=== PATIENT | female | born 1950 | race Caucasian/White ===

== ENCOUNTER 2019-11-07 09:53 | Day surgery (SDC) | payer OTHER ==
[~2019-11-07] VITALS: Ht 157.5 cm; Wt 68.0 kg
[~2019-11-07 09:53] MED LIST: CELEBREX200 MG PO; COREG25 MG PO; COZAAR50 MG PO; FLUTICASONE PRO16 GM NASAL; IBANDRONATE SO150 MG PO; IBUPROFEN800 MG PO; LEXAPRO20 MG PO; PRAVACHOL20 MG PO; PROAIR HFA8.5 G1 INH; RITALIN20 MG PO; SINGULAIR10 MG PO; SYMBICORT 16010.2 GM INH; WELLBUTRIN SR150 MG PO; ZETIA10 MG PO
[2019-11-07 10:19] LABS: HEMATOCRIT 42.5 % (36.0-48.0); MCHC 32.9 g/dL (31.0-37.0); MEAN PLATELET VOLUME 8.7 fL (7.4-10.4); RBC 4.52 10x6/uL (4.00-5.40); RDW 12.3 % (11.5-14.5); WBC 6.6 10x3/uL (4.8-10.8)
[2019-11-07 10:23] LABS: CALC OSMOLALITY 266 mosm/kg (275-300); CARBON DIOXIDE 31.2 mmol/L (21.0-32.0); CHLORIDE - SERUM 97 mmol/L (98-107); CREATININE - SERUM 0.7 mg/dL (0.6-1.3); GLUCOSE 130 mg/dL (74-106); POTASSIUM - SERUM 4.4 mmol/L (3.5-5.1); SODIUM 132 mmol/L (136-145); UREA NITROGEN 13 mg/dL (7-18); eGFR NON AFRICAN AMERICAN 88 mL/min (90-120)
[2019-11-07 11:09] VITALS: Ht 157.5 cm; Wt 68.0 kg
--- NOTE | 2019-11-07 13:08 | NUR ---
1305 RECEIVED CALL FROM KRAIG BEEBE (INFECTION CONTROL) REGARDING PT'S HX OF MRSA IN 2019. REQUESTED THAT DR LATHAM BE NOTIFIED OF THIS HX FOR FOLLOWUP TREATMENT. 1308 DR LATHAM NOTIFIED THROUGH PUBLIC ACCOUNTANT IN HIS OR. 1311 CALL BACK FROM PUBLIC ACCOUNTANT REQUESTING MORE INFORMATION FOR DR LATHAM
--- NOTE | 2019-11-07 13:17 | NUR ---
1317 CALLED KRAIG GARRIDO (MICRO PALEONTOLOGIST FOR DR LATHAM) TO INFORM HER OF WHAT PT HAD MENTIONED PREOP ABOUT HAVING MRSA IN THE PAST BUT THAT IT WAS NOT ACQUIRED HERE AT [facility]. SHE WAS TREATED AND RECOVERED FROM MRSA INFECTION AUGUST 2018. HEMA STATED SHE WOULD PASS THIS INFO TO DR LATHAM AND THAT HE WAS PLANNING TO TREAT HER POSTOPERATIVELY TO AVOID MRSA INFECTION.
[2019-11-07] MEDS ORDERED: PERCOCET 10-321 EAC1 PO (13:33)
[2019-11-07] MEDS ORDERED: DURICEF500 MG PO (13:34)
[2019-11-07] MEDS ORDERED: VISTARIL50 MG PO (13:34)
--- NOTE | 2019-11-07 16:27 | NUR ---
1450 PT BACK TO ROOM. ENCOURAGED DEEP BREATHING AND COUGHING. LEFT ARM DARLING AND SPLINT. FINGERS WARM TO TOUCH AND PINK. WIGGLES WITH LIGHT SENSATION NOTED. RX GIVEN TO PT. PT STATED SHE NEEDED TO GET [place] PHARMACY [place] INFORMED PT SHE WOULD BE HERE FOR 1 HOUR. NO FAMILY IN ROOM AT THIS TIME. DENIES PAIN. OFFERED PT SOMETHING TO DRINK. 1510 TOLERAING FLUIDS WELL. IV SITE W/O SWELLING OR DRANAGE. 1520 CALLED IN RX TO PTS PHARMACY AND THEY CLOSE AT 6PM. TOLERATING PUDDING. INSTRUCTIONS GIVEN AND REVEIWED 1545 IV REMOVED AND ASSISTED WITH GETTING DRESSED. FRIEND HERE TO BRING PT HOME. VOIDED X1 1605 D/C HOME IN W/C
--- NOTE | 2019-11-08 06:51 | OP ---
PATIENT NAME: AMARI HUSSEIN MEDICAL RECORD: [id number] :52 LOCATION:[facility] AD[facility] DATE: SURGEON: BOSTON LATHAM DO DATE OF OPERATION: 11/07/2019 PROCEDURE PERFORMED: Left olecranon open reduction internal fixation. PREOPERATIVE DIAGNOSIS: Closed displaced comminuted left olecranon fracture. POSTOPERATIVE DIAGNOSIS: Closed displaced comminuted left olecranon fracture. INDICATIONS: Ms. Hussein is a 69-year-old female who fell 2 days ago and sustained a left displaced olecranon fracture that was comminuted. She was seen in my office on Tuesday and scheduled for surgery today. I informed her we need to fix this and it should be at risk for malunion, nonunion, need for further surgery, damage to nerves and vessels in the area including ulnar nerve, radial nerve and the median nerve. She would be a risk for fracture displacement as well, continued pain and loss of range of motion of the elbow. She is aware of all that as well as she had a history of MRSA and signed the consent. SURGEON: Boston Latham DO DESCRIPTION OF PROCEDURE: The patient received a block by anesthesia in the preoperative area and she was taken to operative suite, laid in supine position, given general anesthetic and LMA was placed. She was given 2 grams of Ancef preoperatively and then a gram of Ancef intraoperatively once we found out MRSA history. A timeout was performed, everyone was agreeance with correct site, side, patient and procedure. After the left upper extremity was prepped and draped, the tourniquet was inflated after exsanguinating the left upper extremity to 250 mmHg, it was up for 38 minutes. I then began by making a careful dissection down through the soft tissue of the posterior elbow, curving the incision radially to avoid the ulnar nerve. I used the Bovie go down to the bone of the ulna distally and then once we got that exposed, put the plate on and got in good position. Once the plate was in adequate position, I put a compression screw in and sucked the plate down to the ulna. I then put in the remaining locking screws and x-rays were taken and any screws that were too long were removed and put in the correct size. I then let the tourniquet down, any bleeding was coagulated with Bovie. It was then irrigated and closed, closed by Jose Tapia, certified athletic trainer and Oleksandr Garrett surgical first breaker feeder student. It was closed with 3-0 Vicryl in inverted interrupted fashion, 4-0 Monocryl running on the skin and ZipLine placed over the incision. She was then dressed with Adaptic, 4 x 4s, ABD, cast padding and a 4 x 30 splint was placed posteriorly and secured with an Aiden wrap. She was awakened and taken to recovery in stable condition. BLOOD LOSS: Minimal. COMPLICATIONS: None. TRANSINT:[id number] Voice Confirmation ID: [id number] DOCUMENT ID: [id number] OPERATIVE REPORT [id number] AMARI HUSSEIN MICHAEL D, DO at 0651 CC: [id number] DICTATION DATE: 11/07/19 1341 BEEF SPLITTER: 11/07/[address] [facility] 11/07/19 [id number] [place] [address]
== END 2019-11-07 16:05 | disposition home or self-care (01) ==
LOC: D.OPS 09:53 → D.PAN 12:00 → D.OPS 16:05
PROVIDERS: Anesthesiology; ATTEND Orthopaedic Surgery
DX: S52.022A Displaced fracture of olecranon process without intraarticular extension of left ulna, initial encounter for closed fracture (principal); X58.XXXA Exposure to other specified factors, initial encounter; J45.909 Unspecified asthma, uncomplicated; I10 Essential (primary) hypertension; S52.602A Unspecified fracture of lower end of left ulna, initial encounter for closed fracture